=== PATIENT | female | born 1965 | race Caucasian/White ===

== ENCOUNTER 2017-09-28 22:27 | Emergency (ER) | payer SELFPAY ==
[2017-09-28 22:58] LABS: RAPID GROUP A STREP NEGATIVE (NEGATIVE)
[2017-09-28] MEDS ORDERED: ACETAMINOPHEN EXTRA STRENGTH 500 MG TABLET ONE (23:14)
== END 2017-09-28 23:38 | disposition home or self-care (01) ==
LOC: EDH 22:27
DX: J20.9 Acute bronchitis, unspecified (principal); Z86.73 Personal history of transient ischemic attack (TIA), and cerebral infarction without residual deficits; Z88.0 Allergy status to penicillin; Z88.1 Allergy status to other antibiotic agents; Z91.018 Allergy to other foods
CPT/HCPCS: 87804; 87880